=== PATIENT | female | born 1960 | race Caucasian/White ===

== ENCOUNTER 2016-07-15 19:46 | Emergency (ER) | payer MEDICARE, OTHER ==
--- NOTE | ~2016-07-15 | CT2 ---
[facility] A Service of [facility] RADIOLOGY TEXT RESULTS PATIENT: NANCY IRAHETA LOCATION: SED : 56 UNIT #: [id number] AGE: [address]: Jesús Colon MD SEX: F ORDER DR: [id number] [address] [address] [id number] E MR#: [id number] Acc #: [id number] NAME: NANCY IRAHETA. : 1960 SEX: F STUDY DATE/TIME: 07/15/2016 22:14 UNIT: SED ROOM: STUDY DESCRIPTION: CT Abd and Pelv W Cont Attending Physician: Jesús Colon M.D. Ordering Physician: Jesús Colon M.D. Primary Care Physician: Michael Hairston MEDICAL IMAGING REPORT This report is preliminary unless electronic signature is present. EXAM CT abdomen and pelvis with contrast DATE 07/15/2016 HISTORY 56-year-old female fever, weakness, diminished appetite. Symptoms have been present for 2 weeks. Additional history of diabetes and diverticulitis. COMPARISON None. PROCEDURE 5 mm axial images from lung bases through lesser trochanters after intravenous and enteric contrast administration. Sagittal and coronal reformatted images were obtained. This CT exam was performed with one or more of the following radiation dose reduction techniques: automatic control, adjustment of mA and/or kV according to patient size, and iterative reconstruction. FINDINGS This CT exam was performed with one or more of the following radiation dose reduction techniques: automatic control, adjustment of mA and/or kV according to patient size, and iterative reconstruction. FINDINGS ABDOMEN FINDINGS: Lung bases appear free of consolidation. 9 mm cyst is seen in the left hepatic lobe. Gallbladder, spleen, pancreas, adrenals and right kidney are within normal limits. A tiny low-density lesion in the posterior left mid kidney measures 6 mm, statistically favored to [facility] A Service of [facility] RADIOLOGY TEXT RESULTS PATIENT: NANCY IRAHETA LOCATION: SED : 56 UNIT #: [id number] AGE: [address]: Jesús Colon MD SEX: F ORDER DR: represent a cyst. The appendix is normal. The bowel appears nonthickened, nondilated noninflamed. Sparse diverticular changes are present in the descending sigmoid colon without evidence of acute diverticulitis. PELVIS FINDINGS: Urinary bladder uterus and rectum are within normal limits. No pelvic adenopathy or free fluid is identified. No acute osseous abnormalities are identified. IMPRESSION 1. No acute findings within the abdomen or pelvis. 2. Small hepatic cyst. 3. Normal appendix. Dictated by... Aundrea Izquierdo M.D. THIS IS AN ELECTRONICALLY VERIFIED REPORT Aundrea Izquierdo M.D. at 07/16/2016 4:20 AM SHAWNA/diogo TD: 07/16/2016 02:50 JOB #: [id number] MEDICAL IMAGING REPORT Page 1 of 1
--- NOTE | ~2016-07-15 | CR63 ---
[facility]. [facility] A Service of [facility] RADIOLOGY TEXT RESULTS PATIENT: NANCY IRAHETA LOCATION: SED : 56 UNIT #: [id number] AGE: [address]: Jesús Colon MD SEX: F ORDER DR: [id number] [place] [id number] E MR#: [id number] Acc #: [id number] NAME: NANCY IRAHETA. : 1960 SEX: F STUDY DATE/TIME: 07/15/2016 22:16 UNIT: SED ROOM: STUDY DESCRIPTION: CR Chest 2 View Attending Physician: Jesús Colon M.D. Ordering Physician: Jesús Colon M.D. Primary Care Physician: Lidia Hairston M.D. MEDICAL IMAGING REPORT This report is preliminary unless electronic signature is present. EXAM 2 views of the chest COMPARISON Portable chest dated 05/07/2012. INDICATION 56-year-old female with fever, weakness and decreased appetite for 2 weeks. FINDINGS There is poor inspiratory effort. There is no evidence of pneumothorax, pleural effusion or acute airspace disease. Prominence of the right central bronchovascular structures is stable compared to 2013. Cardiomediastinal silhouette is likely within normal limits for low lung volumes. Mild multilevel anterior thoracolumbar spondylosis. Calcification of the aortic arch. IMPRESSION No acute radiographic abnormality. Dictated by... Shorty Dickson M.D. THIS IS AN ELECTRONICALLY VERIFIED REPORT Shorty Dickson M.D. at 07/17/2016 3:38 PM GARY/diogo TD: 07/16/2016 01:06 JOB #: [id number] MEDICAL IMAGING REPORT Page 1 of 1
[2016-07-15 19:58] LABS: BASOPHIL# 0.1 X10e3 (0-0.3); BASOPHIL% 1.4 % (0-2.5); HEMATOCRIT 36.4 % (35.0-45.0); HEMOGLOBIN 12.4 gm/dL (12.0-16.0); LYMPHOCYTE# 1.8 X10e3 (1.0-3.5); LYMPHOCYTE% 35.3 % (17.0-45.0); MEAN CELL VOLUME 88.2 FL (83-96); MEAN CORPUSCULAR HEMOGLOBIN 30.1 PG (28-34); MEAN CORPUSCULAR HGB CONC 34.1 g/dL (30-36); MEAN PLATELET VOLUME 7.6 FL (6.5-11.5); MONOCYTE# 0.3 X10e3 (0-1.0); MONOCYTE% 6.5 % (3.0-12.0); NEUTROPHIL% 56.8 % (40-75); PLATELET COUNT 273 X10e3 (140-420); RED BLOOD COUNT 4.12 X10e (3.90-5.30); RED CELL DISTRIBUTION WIDTH 15.1 % (11.0-15.5); WHITE BLOOD COUNT 5.2 X10e3 (4.0-10.5)
[2016-07-15 20:00] LABS: DIFF IND NO
[2016-07-15 20:11] LABS: ALBUMIN SERUM 3.9 g/dL (3.5-5.0); BILIRUBIN, DIRECT 0.4 mg/dL (0.0-0.2); BILIRUBIN,INDIRECT 0.7 mg/dL (0.0-0.9); BILIRUBIN,TOTAL 1.1 mg/dL (0.2-2.0); CREATININE SERUM 0.8 mg/dL (0.6-1.4); GLOM FILT RATE Estimated 81.3 mL/min (>60); POTASSIUM 3.1 mmol/L (3.5-5.1); PROTEIN TOTAL SERUM 7.2 g/dL (6.0-8.3)
[2016-07-15 20:40] LABS: URINE SOURCE CLEAN CATCH
[2016-07-15 20:43] LABS: URINE APPEARANCE CLEAR; URINE BLOOD NEG (NEG); URINE COLOR YELLOW; URINE GLUCOSE NEG (NORM); URINE LEUKOCYTE ESTERASE NEG (NEG); URINE NITRATE NEG (NEG); URINE PROTEIN NEG (NEG); URINE SPECIFIC GRAVITY 1.015 (1.003-1.035)
[2016-07-15 20:45] LABS: MICRO INDICATED? NO; URINE BILIRUBIN NEG (NEG); URINE KETONE 2+ (NEG)
== END 2016-07-15 23:40 | disposition home or self-care (01) ==
LOC: SED 19:46
PROVIDERS: Emergency Medicine
DX: E87.6 Hypokalemia (principal); E86.0 Dehydration; E11.9 Type 2 diabetes mellitus without complications; Z88.5 Allergy status to narcotic agent; Z88.1 Allergy status to other antibiotic agents; Z88.8 Allergy status to other drugs, medicaments and biological substances
CPT/HCPCS: 36415; 71020; 74177; 80048; 80076; 81003; 83605; 83690; 85025; 86308; 87040; 96360; 99284; Q9967